=== PATIENT | male | born 1960 | race Caucasian/White ===

== ENCOUNTER 2024-03-16 05:56 | Emergency (ER) | payer OTHER, SELFPAY ==
[2024-03-16] VITALS (8 sets, daily range): BP systolic 141–162; BP diastolic 79–94; PULSE 69–99; RESP 14–22; TEMP 36.6–36.8; O2SAT 96–99; BMI 27.8
--- NOTE | 2024-03-16 06:03 | ED.ABDPAIN ---
HPI - Abdominal Pain <Evelyne Moses DO - Last Filed: 03/18/24 07:07> General Chief Complaint: Abdominal Pain Stated Complaint: abd pain Time Seen by Provider: 03/16/24 06:03 Source: patient, RN notes reviewed and old records reviewed Mode of arrival: Ambulatory Limitations: no limitations History of Present Illness HPI narrative: 63-year-old male no reported medical issues who presents with complaint of abdominal pain that started 3 days ago. Patient states pain has been mostly generalized but does have little bit of increasing left lower quadrant when he pushes. Denies fevers. Has some chills this morning. States he has had nausea but no active vomiting. Denies chest pain or shortness of breath. No syncope. States no bowel movement in the past 3 days but passing flatus regularly. Patient states he feels distended and tight in his belly. Denies dysuria urgency or frequency. States no daily prescription medications, no prior surgeries. Denies any drug allergies. Does have an allergy to bees. Denies tobacco, alcohol or recreational drugs. States had a somewhat similar episode in the past was told it was gallstones but did not require any intervention. Related Data Previous Rx's Medication Instructions Recorded hydrocodone 5 mg-acetaminophen 325 1 tab PO Q6H PRN pain #14 tabs 03/16/24 mg tablet ondansetron 4 mg disintegrating 4 mg PO Q8H PRN nausea and 03/16/24 tablet vomiting #10 tabs tamsulosin 0.4 mg capsule (Flomax) 0.4 mg PO BEDTIME #10 caps 03/16/24 Allergies Allergy/AdvReac Type Severity Reaction Status Date / Time No Known Drug Allergies Allergy Verified 03/16/24 06:15 Review of Systems <Evelyne Moses DO - Last Filed: 03/18/24 07:07> Review of Systems ROS Unobtainable: All systems reviewed & are unremarkable except as noted in HPI and below Patient History <Evelyne Moses DO - Last Filed: 03/18/24 07:07> Social History Smoking Status: Never smoker Exam <DO Cassie Sauceda Last Filed: 03/18/24 07:07> Narrative Exam Narrative: GENERAL: Alert and oriented x three, male in moderate distress HEENT: Head normocephalic, atraumatic, EOMI, pupils reactive, face symmetric, moist mucous membranes NECK: Supple, full range of motion CARDIOVASCULAR: Regular rate and rhythm without murmurs, rubs or gallops. RESPIRATORY: Breath sounds equal bilaterally, no wheezes rales or rhonchi. ABDOMEN: Soft, tender in the left lower quadrant. Normoactive bowel sounds all 4 quadrants. No guarding or rebound, rigidity, no mass, mildly distended. : No CVA tenderness EXTREMITIES: Normal range of motion, no clubbing or edema. Neurovascularly intact NEUROLOGICAL: Cranial nerves II through XII grossly intact. Moving all extremities SKIN: Warm, dry, no petechiae, no rashes or lesions. Initial Vital Signs Initial Vital Signs: Vital Signs Pulse Rate 98 H 03/16/24 06:02 Blood Pressure 141/92 H 03/16/24 06:02 Pulse Oximetry 99 03/16/24 06:02 <Ying Spence DO - Last Filed: 03/16/24 08:52> Initial Vital Signs Initial Vital Signs: Vital Signs Pulse Rate 98 H 03/16/24 06:02 Blood Pressure 141/92 H 03/16/24 06:02 Pulse Oximetry 99 03/16/24 06:02 Course <Evelyne Moses DO - Last Filed: 03/18/24 07:07> Orders Ordered: Discontinued Medications Ketorolac Tromethamine (Ketorolac 30 Mg/Ml Vial) 15 mg IV NOW ONE Stop: 03/16/24 06:09 Last Admin: 03/16/24 06:16 Dose: 15 mg Documented By: ANNABEL Morphine Sulfate (Morphine 2 Mg/Ml Inj) 2 mg IV NOW ONE Stop: 03/16/24 07:54 Last Admin: 03/16/24 08:14 Dose: 2 mg Documented By: JARVIS Ondansetron HCl (Ondansetron 4 Mg/2 Ml Inj) 4 mg IV NOW ONE Stop: 03/16/24 06:09 Last Admin: 03/16/24 06:16 Dose: 4 mg Documented By: ANNABEL Vital Signs Vital signs: Vital Signs - 8 hr 03/16/24 06:02 03/16/24 06:02 03/16/24 06:04 Temperature 97.9 F Pulse Rate 98 H 99 H Respiratory Rate 22 Blood Pressure 141/92 H 141/92 H Pulse Oximetry 99 99 Oxygen Delivery Method Room Air 03/16/24 06:31 03/16/24 06:32 03/16/24 06:32 Temperature Pulse Rate 78 73 Respiratory Rate Blood Pressure 156/82 H Pulse Oximetry 98 98 Oxygen Delivery Method 03/16/24 07:00 03/16/24 07:00 03/16/24 07:30 Temperature Pulse Rate 77 Respiratory Rate Blood Pressure 141/79 H 146/85 H Pulse Oximetry 96 Oxygen Delivery Method 03/16/24 07:30 03/16/24 08:00 03/16/24 08:00 Temperature Pulse Rate 74 69 Respiratory Rate Blood Pressure 162/94 H Pulse Oximetry 99 98 Oxygen Delivery Method <Ying Spence, - Last Filed: 03/16/24 08:52> Orders Ordered: Discontinued Medications Ketorolac Tromethamine (Ketorolac 30 Mg/Ml Vial) 15 mg IV NOW ONE Stop: 03/16/24 06:09 Last Admin: 03/16/24 06:16 Dose: 15 mg Documented By: ANNABEL Morphine Sulfate (Morphine 2 Mg/Ml Inj) 2 mg IV NOW ONE Stop: 03/16/24 07:54 Last Admin: 03/16/24 08:14 Dose: 2 mg Documented By: JARVIS Ondansetron HCl (Ondansetron 4 Mg/2 Ml Inj) 4 mg IV NOW ONE Stop: 03/16/24 06:09 Last Admin: 03/16/24 06:16 Dose: 4 mg Documented By: ANNABEL Vital Signs Vital signs: Vital Signs - 8 hr 03/16/24 06:02 03/16/24 06:02 03/16/24 06:04 Temperature 97.9 F Pulse Rate 98 H 99 H Respiratory Rate 22 Blood Pressure 141/92 H 141/92 H Pulse Oximetry 99 99 Oxygen Delivery Method Room Air 03/16/24 06:31 03/16/24 06:32 03/16/24 06:32 Temperature Pulse Rate 78 73 Respiratory Rate Blood Pressure 156/82 H Pulse Oximetry 98 98 Oxygen Delivery Method 03/16/24 07:00 03/16/24 07:00 03/16/24 07:30 Temperature Pulse Rate 77 Respiratory Rate Blood Pressure 141/79 H 146/85 H Pulse Oximetry 96 Oxygen Delivery Method 03/16/24 07:30 03/16/24 08:00 03/16/24 08:00 Temperature Pulse Rate 74 69 Respiratory Rate Blood Pressure 162/94 H Pulse Oximetry 99 98 Oxygen Delivery Method MDM - Abdominal Pain <Evelyne Moses, - Last Filed: 03/18/24 07:07> Lab Data 03/16/24 06:15 03/16/24 06:15 Labs: Lab Results 03/16/24 03/16/24 Range/Units 06:15 08:35 WBC 13.7 H (4.5-11.0) X10^3/uL RBC 5.55 (4.5-5.9) X10^6/uL Hgb 16.2 (13.5-17.5) g/dL Hct 47.0 (41-53) % MCV 84.8 (80-100) fL MCH 29.1 (26-34) PG MCHC 34.3 (30-36) % RDW 14.3 (11.6-14.8) % Plt Count 269 (150-400) X10^3/uL Neut % (Auto) 73.8 (50-75) % Lymph % (Auto) 11.8 L (25-40) % [place] % (Auto) 11.8 (3-14) % Eos % (Auto) 2.2 (2-4) % Baso % (Auto) 0.4 (0-2) % Neut # (Auto) 77053 H (8071-5863) /uL Lymph # (Auto) 1600 (9828-7984) /uL [place] # (Auto) 1600 H (0-900) /uL Eos # (Auto) 300 (0-450) /uL Baso # (Auto) 100 (0-100) /uL Sodium 138 (137-145) mmol/L Potassium 4.4 (3.4-5.1) mmol/L Chloride 105 (98-107) mmol/L Carbon Dioxide 23 (22-32) mmol/L BUN 18 (9-20) mg/dL Creatinine 1.78 H (0.66-1.25) mg/dL Estimated GFR 43 L (>60) mL/min BUN/Creatinine Ratio 10.1 (6-22) Glucose 127 H (80-110) mg/dL Calcium 9.5 (8.4-10.2) mg/dL Total Bilirubin 1.2 (0.2-1.3) mg/dL AST 27 (17-59) IU/L ALT 19 (<50) IU/L Alkaline Phosphatase 69 (38-126) U/L Total Protein 8.1 (6.3-8.2) g/dL Albumin 4.8 (3.5-5.0) g/dL Globulin 3.3 (1.7-4.1) g/dL Albumin/Globulin Ratio 1.5 (1.0-2.8) Lipase 51 (23-300) U/L Urine RBC 0-1/hpf (0-5/HPF) Urine WBC 0-1/hpf (0-5/HPF) Ur Squamous Epith Cells 0-1 /hpf (0-5/HPF) Urine Bacteria None seen (None) Ur Culture Indicated? Cult not indicated Vol Urine Centrifuged 10ml (spun) Point of care testing: Urine Dip Bedside Urine Glucose Negative Bedside Urine Bilirubin + 1 Bedside Urine Ketone +++ 80 Urine Specific [place] 1.010 Bedside Urine Occult Blood - Negative Bedside Urine pH 5.5 Bedside Urine Protein +/- 15 Bedside Urine Urobilinogen - Negative Bedside Urine Nitrite - Negative Bedside Urine Leukocytes - Negative Esterase MDM Narrative Medical decision making narrative: 63-year-old male presents with complaint of 3 days abdominal pain nausea without bowel movement for the past 3 days. Patient has a little bit more tender in left lower quadrant on examination. Plan for labs and CT imaging as patient has had no bowel movement for 3 days with the abdominal pain, nausea tenderness on exam. Labs, Urine, CT abdomen pelvis pending. Patient received Toradol 50 mg IV and Zofran 4 mg. Patient signed out to Dr. Spence. -patient is signed out to me by Dr. Moses. I have seen evaluated patient myself. He is found to have a [address] He has mild leukocytosis of 13 with mild elevation of creatinine of 1.78. Urinalysis no evidence of infection He received Toradol and morphine for pain Dr Morin, urology, agrees with outpatient follow-up supportive care only <Ying Spence DO - Last Filed: 03/16/24 08:52> Lab Data Labs: Lab Results 03/16/24 03/16/24 Range/Units 06:15 08:35 WBC 13.7 H (4.5-11.0) X10^3/uL RBC 5.55 (4.5-5.9) X10^6/uL Hgb 16.2 (13.5-17.5) g/dL Hct 47.0 (41-53) % MCV 84.8 (80-100) fL MCH 29.1 (26-34) PG MCHC 34.3 (30-36) % RDW 14.3 (11.6-14.8) % Plt Count 269 (150-400) X10^3/uL Neut % (Auto) 73.8 (50-75) % Lymph % (Auto) 11.8 L (25-40) % Banks % (Auto) 11.8 (3-14) % Eos % (Auto) 2.2 (2-4) % Baso % (Auto) 0.4 (0-2) % Neut # (Auto) 02731 H (6668-6906) /uL Lymph # (Auto) 1600 (5312-5626) /uL [place] # (Auto) 1600 H (0-900) /uL Eos # (Auto) 300 (0-450) /uL Baso # (Auto) 100 (0-100) /uL Sodium 138 (137-145) mmol/L Potassium 4.4 (3.4-5.1) mmol/L Chloride 105 (98-107) mmol/L Carbon Dioxide 23 (22-32) mmol/L BUN 18 (9-20) mg/dL Creatinine 1.78 H (0.66-1.25) mg/dL Estimated GFR 43 L (>60) mL/min BUN/Creatinine Ratio 10.1 (6-22) Glucose 127 H (80-110) mg/dL Calcium 9.5 (8.4-10.2) mg/dL Total Bilirubin 1.2 (0.2-1.3) mg/dL AST 27 (17-59) IU/L ALT 19 (<50) IU/L Alkaline Phosphatase 69 (38-126) U/L Total Protein 8.1 (6.3-8.2) g/dL Albumin 4.8 (3.5-5.0) g/dL Globulin 3.3 (1.7-4.1) g/dL Albumin/Globulin Ratio 1.5 (1.0-2.8) Lipase 51 (23-300) U/L Urine RBC 0-1/hpf (0-5/HPF) Urine WBC 0-1/hpf (0-5/HPF) Ur Squamous Epith Cells 0-1 /hpf (0-5/HPF) Urine Bacteria None seen (None) Ur Culture Indicated? Cult not indicated Vol Urine Centrifuged 10ml (spun) Point of care testing: Urine Dip Bedside Urine Glucose Negative Bedside Urine Bilirubin + 1 Bedside Urine Ketone +++ 80 Urine Specific [place] 1.010 Bedside Urine Occult Blood - Negative Bedside Urine pH 5.5 Bedside Urine Protein +/- 15 Bedside Urine Urobilinogen - Negative Bedside Urine Nitrite - Negative Bedside Urine Leukocytes - Negative Esterase Imaging Data CT scan - abdomen/pelvis: Radiologist's Impression: PROCEDURE: CT ABDOMEN PELVIS W CON INDICATIONS: abd pain x 3, more LLQ, nausea/constipation, +flatus TECHNIQUE: After the administration of intravenous contrast, axial sections acquired from the lung bases to the pubic symphysis. Coronal and sagittal reformats were performed. For radiation dose reduction, the following was used: automated exposure control, adjustment of mA and/or kV according to patient size. COMPARISON: None. FINDINGS: Image quality: Diagnostic. Lower Chest: No significant findings. ABDOMEN: Liver: No solid mass. Gallbladder: No radiopaque gallstones or wall thickening. Biliary ducts: No biliary dilation. Pancreas: No ductal dilation. Spleen: Size is within normal limits. Adrenal Glands: No adrenal nodules. Kidneys and Ureters: Obstructing left distal ureteral stone measuring 7 mm resulting in mild to moderate upstream hydroureteronephrosis. Periureteral stranding is noted. Mildly delayed left nephrogram. Right kidney is normal in appearance without stones or hydronephrosis. Stomach and Bowel: Normal colonic caliber, without significant wall thickening. Normal appendix. Peritoneum: No abnormal intraperitoneal fluid. No free air. Ventral Wall: No significant ventral hernia. Abdominal Nodes: No retroperitoneal or mesenteric adenopathy by size criteria. Vessels: Aorta and inferior vena cava are normal in size. PELVIS: Pelvic Organs: Unremarkable. Bladder: No bladder wall thickening, accounting for underdistention. Pelvic Nodes: No enlarged lymph nodes. Miscellaneous: Small left greater than right fat containing inguinal hernias are seen. Bones: No aggressive osseous abnormality. Degenerative changes of the spine. IMPRESSION: Obstructing left distal ureteral stone measuring 7 mm resulting in mild to moderate upstream hydroureteronephrosis. Mildly delayed left nephrogram, consider correlation with urinalysis to exclude superimposed infection. Dictated by: Francisco Crowder M.D. on 03/16/2024 at 7:38 MDM Narrative Medical decision making narrative: 63-year-old male presents with complaint of 3 days abdominal pain nausea without bowel movement for the past 3 days. Patient has a little bit more tender in left lower quadrant on examination. Plan for labs and CT imaging as patient has had no bowel movement for 3 days with the abdominal pain, nausea tenderness on exam. Labs Urine CT abdomen pelvis Patient received Toradol 50 mg IV and Zofran 4 mg. On recheck -patient is signed out to me by Dr. Moses. I have seen evaluated patient myself. He is found to have a [address] He has mild leukocytosis of 13 with mild elevation of creatinine of 1.78. Urinalysis no evidence of infection He received Toradol and morphine for pain Dr Morin, urology, agrees with outpatient follow-up supportive care only Discharge Plan Departure Patient Disposition: Home Clinical Impression: Kidney stone on left side Instructions: DI for Kidney Stones Activity Restrictions/Additional Instructions: *You have been diagnosed with kidney stone *What to do: At this time stay hydrated. You may or may not pass the stone. You will need to call and follow-up with urology. *Continue to take medications as directed Motrin 600 mg every 6 hours for [id number] pain [place] 1 tablet every 6 hours if needed for severe pain Zofran 4 mg every 8 hours for nausea vomiting Tamsulosin 0.4 mg at night *Follow up with your primary care provider in 2-3 days or call [phone] You will need to call and follow-up with urology this may or may not need assistance in pass *Return to ER if you should have increased pain nausea vomiting fever [or] any new, worsening or concerning symptoms Prescriptions: New hydrocodone-acetaminophen 5-325 mg tablet 1 tab PO Q6H PRN (Reason: pain) Qty: 14 0RF ondansetron 4 mg tablet,disintegrating 4 mg PO Q8H PRN (Reason: nausea and vomiting) Qty: 10 0RF tamsulosin [Flomax] 0.4 mg capsule 0.4 mg PO BEDTIME Qty: 10 0RF Stand Alone Forms: Patient Portal/API
--- NOTE | 2024-03-16 06:08 | DI.CT.S_ITS ---
PROCEDURE: CT ABDOMEN PELVIS W CON INDICATIONS: abd pain x 3, more LLQ, nausea/constipation, +flatus TECHNIQUE: After the administration of intravenous contrast, axial sections acquired from the lung bases to the pubic symphysis. Coronal and sagittal reformats were performed. For radiation dose reduction, the following was used: automated exposure control, adjustment of mA and/or kV according to patient size. COMPARISON: None. FINDINGS: Image quality: Diagnostic. Lower Chest: No significant findings. ABDOMEN: Liver: No solid mass. Gallbladder: No radiopaque gallstones or wall thickening. Biliary ducts: No biliary dilation. Pancreas: No ductal dilation. Spleen: Size is within normal limits. Adrenal Glands: No adrenal nodules. Kidneys and Ureters: Obstructing left distal ureteral stone measuring 7 mm resulting in mild to moderate upstream hydroureteronephrosis. Periureteral stranding is noted. Mildly delayed left nephrogram. Right kidney is normal in appearance without stones or hydronephrosis. Stomach and Bowel: Normal colonic caliber, without significant wall thickening. Normal appendix. Peritoneum: No abnormal intraperitoneal fluid. No free air. Ventral Wall: No significant ventral hernia. Abdominal Nodes: No retroperitoneal or mesenteric adenopathy by size criteria. Vessels: Aorta and inferior vena cava are normal in size. PELVIS: Pelvic Organs: Unremarkable. Bladder: No bladder wall thickening, accounting for underdistention. Pelvic Nodes: No enlarged lymph nodes. Miscellaneous: Small left greater than right fat containing inguinal hernias are seen. Bones: No aggressive osseous abnormality. Degenerative changes of the spine. IMPRESSION: Obstructing left distal ureteral stone measuring 7 mm resulting in mild to moderate upstream hydroureteronephrosis. Mildly delayed left nephrogram, consider correlation with urinalysis to exclude superimposed infection. Dictated by: Francisco Crowder M.D. on 03/16/2024 at 7:38 Approved by: Francisco Crowder M.D. on 03/16/2024 at 7:42
[2024-03-16] MEDS: KETOROLAC 30 MG/ML VIAL 15 MG IV (06:16)
[2024-03-16] MEDS: ONDANSETRON 4 MG/2 ML INJ IV (06:16)
[2024-03-16 06:25] LABS: Add Manual Diff / Slide Review NO; Basophils Absolute Auto 100 /uL (0-100); Basophils Percent Auto 0.4 % (0-2); Eosinophils Absolute Auto 300 /uL (0-450); Eosinophils Percent Auto 2.2 % (2-4); Hemoglobin 16.2 g/dL (13.5-17.5); Lymphocytes Absolute Auto 1600 /uL (1100-4500); Lymphocytes Percent Auto 11.8 % (25-40); Mean Corpuscular HGB Conc 34.3 % (30-36); Mean Corpuscular Hemoglobin 29.1 PG (26-34); Mean Corpuscular Volume 84.8 fL (80-100); Monocytes Absolute Auto 1600 /uL (0-900); Monocytes Percent Auto 11.8 % (3-14); Neutrophils Absolute Auto 10100 /uL (1500-7000); Neutrophils Percent Auto 73.8 % (50-75); Platelet Count 269 X10^3/uL (150-400); Red Blood Cell Count 5.55 X10^6/uL (4.5-5.9); Red Cell Distribution Width 14.3 % (11.6-14.8); White Blood Cell Count 13.7 X10^3/uL (4.5-11.0)
[2024-03-16 06:44] LABS: Alanine Aminotransferase 19 IU/L (<50); Albumin 4.8 g/dL (3.5-5.0); Albumin Globulin Ratio 1.5 (1.0-2.8); Alkaline Phosphatase 69 U/L (38-126); Aspartate Aminotransferase 27 IU/L (17-59); BUN Creatinine Ratio 10.1 (6-22); Bilirubin Total 1.2 mg/dL (0.2-1.3); Blood Urea Nitrogen 18 mg/dL (9-20); Calcium 9.5 mg/dL (8.4-10.2); Carbon Dioxide 23 mmol/L (22-32); Chloride 105 mmol/L (98-107); Estimated Glomerular Filt Rate 43 mL/min (>60); Globulin 3.3 g/dL (1.7-4.1); Glucose 127 mg/dL (80-110); HEMOLYSIS < 15 (0-50); Lipase 51 U/L (23-300); Potassium 4.4 mmol/L (3.4-5.1); Sodium 138 mmol/L (137-145); Total Protein 8.1 g/dL (6.3-8.2)
[2024-03-16] MEDS: MORPHINE 2 MG/ML INJ IV (08:14)
[2024-03-16 09:00] LABS: Bacteria Urine None Seen; Culture Indicated Urine Cult Not Indicated; RBC Urine 0-1/HPF (0-5/HPF); Squamous Epithelial Cell Urine 0-1 /HPF (0-5/HPF); Urine Volume 10mL (spun); WBC Urine 0-1/HPF (0-5/HPF)
== END 2024-03-16 09:09 | disposition home or self-care (01) ==
PROVIDERS: Emergency Medicine; Emergency Provider Emergency Medicine
DX: N20.0 Calculus of kidney (principal); R11.0 Nausea
CPT/HCPCS: 36415; 74177; 80053; 81003; 81015; 83690; 85025; 96374; 96375; 99284; J1885; J2270; J2405; Q9967